=== PATIENT | female | born 1980 | race Caucasian/White ===

== ENCOUNTER 2023-01-18 16:43 | Emergency (ER) | payer MEDICAID, SELFPAY ==
[2023-01-18] VITALS (11 sets, daily range): BP systolic 108–124; BP diastolic 58–84; PULSE 83–91; RESP 16–18; TEMP 36.3–37; O2SAT 95–100
--- NOTE | ~2023-01-18 | CT_ITS ---
EXAMINATION: CT abdomen pelvis w con DATE: 01/18/2023 22:18 INDICATION: Lower abdominal pain. Nausea. TECHNIQUE: Computed tomography (CT) of the abdomen and pelvis was performed with 100 mL Omnipaque 350 intravenous contrast. Automated exposure control and iterative reconstruction technique were employe d. The dose-length product was 269.77 mGy-cm. COMPARISON: None. FINDINGS: The visualized portions of the lung bases demonstrate mild atelectasis. No pleural effusion . The heart size is normal. No pericardial effusion. The liver, gallbladder, spleen, pancreas, adrena l glands, and kidneys are normal. There are no dilated loops of bowel. The appendix is normal. There are no pathologically enlarged lymph nodes. There is no free intraperitoneal fluid. There is mild lum bar spondylosis. IMPRESSION: 1. No etiology for the patient's symptoms. Reviewed, dictated and finalized at location E.
--- NOTE | ~2023-01-18 | US_ITS ---
Pelvic ultrasound. Clinical History: Pelvic pain Technique: Realtime transabdominal and transvaginal scanning of the pelvis was performed. Color flow Doppler and Doppler spectral analysis were performed. Findings: The uterus is anteverted. The endometrial stripe has a thickness of 5 mm. No focal mass is identified. The right ovary measures 1.8 x 2.8 x 2.3 cm. No significant right ovarian or adnexal mass is seen. The left ovary measures 2.2 x 2.7 x 2.5 cm. No significant left ovarian or adnexal mass is seen. Vascular flow present in both ovaries on Doppler spectral analysis. There is no evidence of free fluid in the cul de sac. Impression: Unremarkable pelvic ultrasound. Reviewed, dictated and finalized at [facility]. Impression: Unremarkable pelvic ultrasound.
[2023-01-18 17:33] LABS: Appearance Urine Cloudy (Clear); Bacteria Urine 4+ /hpf; Bilirubin Urine 1+ (Negative); Blood Urine 3+ (Negative); Color Urine Dark Yellow (Yellow); Glucose Urine UA 1+ mg/dL (Negative); Ketones Urine Trace mg/dL (Negative); Leukocyte Esterase Ur 2+ LEU/UL (Negative); Nitrate Urine Negative (Negative); Non Pathogenic Casts 0-2; Protein Urine 1+ mg/dL (Negative); RBC Urine 0-2 /hpf (0-2); Squamous Epithelial Cell Urine Occasional /hpf (Few); WBC Urine 51-100 /hpf; pH Urine 6.5 (5.0-9.0)
[2023-01-18 17:35] LABS: Specific Grav Ur 1.043 (1.001-1.035)
[2023-01-18 17:37] LABS: Add Urine Microscopic? YES
--- NOTE | 2023-01-18 20:45 | ED.ABDPAIN ---
HPI - Abdominal Pain General Chief Complaint: Abdominal Pain Stated Complaint: abdominal pain Time Seen by Provider: 01/18/23 20:38 Source: patient Mode of arrival: ambulatory Limitations: no limitations History of Present Illness HPI narrative: Patient is a 42-year-old female who presents to the ED with report of lower abdominal pain. Patient reported having mild pain in her lower abdomen yesterday, which became worse today. Pain has been constant. No significant aggravating or alleviating factors. She tried taking Tylenol while in the ED waiting room without relief. Patient reports some nausea, but denies vomiting. She has had some soft stool, but denies diarrhea, constipation, rectal bleeding, melena. Denies any fevers, dysuria, hematuria, urinary frequency. She had a normal menstrual cycle last week around 01/11. Patient does note history of previous ovarian cysts that required surgical removal in the past. Related Data Allergies Allergy/AdvReac Type Severity Reaction Status Date / Time No Known Allergies Allergy Verified 01/18/23 21:33 Review of Systems Review of Systems: CONSTITUTIONAL: Denies fever, chills, or sweats. CARDIOVASCULAR: Denies chest pain. RESPIRATORY: Denies dyspnea. GASTROINTESTINAL: See HPI. GENITOURINARY: See HPI. SKIN: Denies rash or itching. MUSCULOSKELETAL: Denies back pain, joint pain, or myalgia. All systems reviewed & are unremarkable except as noted in HPI and below PMFSH Past Medical History Medical History (Updated 01/19/23 @ 00:19 by Celeste Ludwig PA-C) No pertinent past medical history Surgical History Surgical History (Updated 01/18/23 @ 23:43 by Celeste Ludwig PA-C) History of ovarian cystectomy Social History Social History Smoking status: Never smoker Exam Narrative: GENERAL: Uncomfortable appearing, well-nourished, non-toxic, in mild acute distress d/t pain. HEAD: Normocephalic, atraumatic. NECK: Supple. No adenopathy, no masses. RESPIRATORY: Airway patent, respirations nonlabored. Clear to auscultation bilaterally, no rales, rhonchi, wheezing. CARDIOVASCULAR: Regular rate and rhythm without murmurs, rubs, or gallops. Radial pulses 2+ and equal bilaterally. ABDOMINAL: Soft, diffuse tenderness to palpation, more notable throughout lower abdomen/suprapubic region, no rebound, nondistended, no hepatosplenomegaly. Normoactive BS. MUSCULOSKELETAL: Moves all extremities. Strength/ROM intact without gross deformities. SKIN: Warm, dry, normal color. No rashes. NEURO: A&O X3. Speech clear. Cranial nerves II-XII grossly intact. Steady gait. No ataxic movements. PSYCHIATRIC: Appropriate mood and affect. Normal interaction. Course Vital Signs Vital signs: Vital Signs Temperature 97.3 F L 01/18/23 16:49 Pulse Rate 83 01/18/23 16:49 Respiratory Rate 16 01/18/23 16:49 Blood Pressure 124/84 01/18/23 16:49 Pulse Oximetry 100 01/18/23 16:49 Temperature 98.6 F 01/18/23 19:33 Pulse Rate 94 01/19/23 01:29 Respiratory Rate 16 01/19/23 01:29 Blood Pressure 136/80 01/19/23 01:29 Pulse Oximetry 97 01/19/23 01:29 MDM - Abdominal Pain MDM Narrative Medical decision making narrative: Patient presented to ED with 2-day history of lower abdominal pain. Vital stable upon arrival. Patient uncomfortable appearing on exam. CBC with leukocytosis of 22.9, neutrophil predominance, no bandemia. CMP with normal electrolytes, stable kidney function, creatinine 0.4. Mild elevation of transaminases. Normal bilirubin and alk phos. Lactic acid within normal limits at 1.6. Urine appears infected with blood, 2+ leuk esterase, 51-100 WBC, 4+ urine bacteria. Will send for culture and treat. Fluids and ceftriaxone started in the ED. CT scan of abdomen pelvis was obtained and without acute findings. Patient has continued to have pain throughout her lower abdomen. Requiring s
[2023-01-18] MEDS: SODIUM CHLORIDE 0.9% IV 1,000 ML 999 ML IV CONT ×2 (21:36→23:01)
[2023-01-18] MEDS: ONDANSETRON INJ 4 MG/2 ML VIAL IV PUSH (21:37)
[2023-01-18] MEDS: MORPHINE SULFATE (*CRX) 4 MG/ML INJ IV PUSH ×2 (21:38→23:52)
[2023-01-18 21:43] LABS: Basophils Absolute Auto 0.1 K/mm3 (0.0-0.1); Basophils Percent Auto 0.3 % (0.2-1.2); Eosinophils Percent Auto 0.2 % (0-4.4); Hematocrit 42.1 % (37.0-47.0); Hemoglobin 14.4 g/dL (12.0-15.0); Immature Granulocyte Absolute 0.17 K/mm3 (0.00-0.031); Immature Granulocyte Percent A 0.7 % (0-0.5); Lymphocytes Absolute Auto 3.05 K/mm3 (0.9-3.2); Lymphocytes Percent Auto 13.3 % (18.3-44.2); Mean Corpuscular HGB Conc 34.2 g/dl (32-36); Mean Corpuscular Hemoglobin 33.1 pg (26-34); Mean Corpuscular Volume 96.8 fl (80-100); Mean Platelet Volume 11.5 fl (7.4-10.4); Monocytes Absolute Auto 1.1 K/mm3 (0.1-0.6); Monocytes Percent Auto 4.9 % (2.6-8.5); Neutrophils Absolute Auto 18.4 K/mm3 (1.3-6.7); Neutrophils Percent Auto 80.6 % (45.5-73.1); Platelet Count Result 278 k/mm3 (150-375); Red Blood Count 4.35 M/mm3 (4.2-5.4); Red Cell Distribution Width 12.3 % (11.5-14.5); White Blood Count 22.9 K/mm3 (4.5-10.0)
[2023-01-18 21:59] LABS: Alanine Aminotransferase 89 U/L (6-35); Albumin Level 4.4 g/dL (3.5-5.1); Alkaline Phosphatase 120 U/L (38-126); Anion Gap 6 mmol/L (8-16); Aspartate Amino Transferase 78 U/L (14-36); Bilirubin,Total 1.2 mg/dL (0.2-1.3); Blood Urea Nitrogen 11 mg/dL (7-17); Calcium 9.6 mg/dL (8.4-10.2); Carbon Dioxide 26 mmol/L (22-30); Chloride 103 mmol/L (98-107); Estimated CRCL calculation 120 ml/min; Estimated Glomerular Filt Rate > 60; Glucose 123 mg/dL (65-110); Lipase 27 U/L (23-300); Sodium 135 mmol/L (137-145)
[2023-01-18 23:08] LABS: Lactic Acid Reflex 1.6 mmol/L (0.7-2.0)
[2023-01-19] MEDS: KETOROLAC 30 MG/ML VIAL (*BKC) IV PUSH (00:30)
[2023-01-19 00:31] VITALS: BP 106/88; PULSE 90; RESP 16; O2SAT 98
[2023-01-19] MEDS: DICYCLOMINE HCL 10 MG CAPSULE 20 MG PO (01:22)
[2023-01-19 01:29] VITALS: BP 136/80; PULSE 94; RESP 16; O2SAT 97
== END 2023-01-19 02:33 | disposition home or self-care (01) ==
PROVIDERS: Emergency Medicine; Emergency Provider Physician Assistant
DX: N30.01 Acute cystitis with hematuria (principal); D72.829 Elevated white blood cell count, unspecified; R10.30 Lower abdominal pain, unspecified
CPT/HCPCS: 36415; 74177; 76830; 76856; 80053; 81001; 81025; 83605; 83690; 85025; 87086; 87088; 96361; 96365; 96375; 96376; 99284; A9270; J0131; J0696; J1885; J2270; J2405; J7030; Q9967